=== PATIENT | female | born 1950 | race Caucasian/White ===

== ENCOUNTER 2024-02-02 10:16 | Emergency (ER) | payer OTHER ==
[~2024-02-02] VITALS: Ht 162.6 cm; Wt 50.0 kg
[2024-02-02] MEDS ORDERED: TETANUS, DIPHTHERIA, PERTUSSIS VAC/PF 0.5ML (>10YR OLD) IM ONE (10:45)
[2024-02-02] MEDS ORDERED: MORPHINE SULFATE 4 MG/ML INJ (FOR IV/IM USE) IV ONE (10:45)
[2024-02-02] MEDS ORDERED: LIDOCAINE HCL/EPINEPHRINE 1%-EPI 1:100,000 20 ML VIAL INFIL ONE (10:45)
[2024-02-02] MEDS ORDERED: PROPOFOL 200MG/20ML VIAL IV ONE (11:15)
[2024-02-02] MEDS: ONDANSETRON HCL 4MG/2ML INJ IV ONE (11:18)
[2024-02-02] MEDS: SODIUM CHLORIDE 0.9% 1,000 ML IV ONE (11:19)
[2024-02-02 11:36] LABS: HEMATOCRIT. 42.7 % (36.0-48.0); HEMOGLOBIN. 14.5 g/dL (12.0-16.0); MEAN CORPUSCULAR HEMOGLOBIN 31.6 pg (28.0-32.0); MEAN PLATELET VOLUME 8.1 fl (7.4-10.4); PLATELET 213 x1000/uL (130-400); RED BLOOD CELL COUNT 4.59 mill/uL (4.2-5.4); RED CELL DISTRIBUTION WIDTH 12.6 % (11.6-14.6); WHITE BLOOD COUNT 9.5 x1000/uL (4.5-11.0)
[2024-02-02 11:38] LABS: DIFFERENTIAL COMMENT 1
[2024-02-02 12:05] VITALS: PULSE 82; RESP 13; O2SAT 100
[2024-02-02 12:10] LABS: PLATELET ESTIMATE NORMAL
[2024-02-02 12:11] LABS: CARBON DIOXIDE 29 mEq/L (21-32)
[2024-02-02 12:12] LABS: CALCIUM 9.7 mg/dL (8.7-10.4)
[2024-02-02 12:17] LABS: GLUCOSE 106 mg/dL (70-105); UREA NITROGEN BLOOD 6 mg/dL (9-23)
[2024-02-02 12:18] LABS: ALANINE AMINOTRANSFERASE 10 IU/L (10-49)
[2024-02-02 12:19] LABS: ASPARTATE AMINOTRANSFERASE 30 IU/L (<34); BILIRUBIN TOTAL 0.6 mg/dL (0.1-1.0); PROTEIN TOTAL 6.7 g/dL (6.0-8.3)
[2024-02-02 12:56] VITALS: BP 137/67; PULSE 80; RESP 16
[2024-02-02] MEDS ORDERED: ACET-2708 MT (14:11)
[2024-02-02] MEDS ORDERED: HYDR-4001 MT (14:11)
[2024-02-02] MEDS ORDERED: NAPR500T7 MT (14:13)
[2024-02-02 14:30] LABS: CHLORIDE 109 mEq/L (98-107); POTASSIUM 3.6 mEq/L (3.5-5.1); SODIUM 144 mEq/L (136-145)
== END 2024-02-02 14:48 | disposition home or self-care (01) ==
LOC: ER 11:14
DX: S52.122A Displaced fracture of head of left radius, initial encounter for closed fracture (principal); S01.81XA Laceration without foreign body of other part of head, initial encounter; Z88.5 Allergy status to narcotic agent; W10.8XXA Fall (on) (from) other stairs and steps, initial encounter; Y93.89 Activity, other specified; Y92.89 Other specified places as the place of occurrence of the external cause; Y99.8 Other external cause status
CPT/HCPCS: 80053; 85025; 36415; 73070; 73100; 24650; 96361; 96374; 99152; 99285; J3490; J2405; J2704; J7030; Z7610 ×2; A4565